=== PATIENT | male | born 1965 | race Caucasian/White ===

== ENCOUNTER 2017-11-16 10:39 | Emergency (ER) | payer BC ==
[~2017-11-16] VITALS: Ht 188 cm; Wt 115.9 kg
[2017-11-16 10:43] VITALS: Ht 188 cm; Wt 115.9 kg
[2017-11-16] MEDS ORDERED: ULTRAM50 MG PO ×2 (10:45→11:21)
[2017-11-16] MEDS ORDERED: NAPROSYN500 MG PO (10:45)
[2017-11-16] MEDS ORDERED: CYCLOBENZAPRINE10 MG PO ×2 (10:45→11:21)
[2017-11-16] MEDS ORDERED: XANAX2 MG PO (10:45)
[2017-11-16] MEDS ORDERED: MEDROL DOSE PACK4 MG PO (11:21)
[2017-11-16 12:23] VITALS: BP 142/83
== END 2017-11-16 12:23 | disposition home or self-care (01) ==
LOC: D.ER 10:39
DX: S16.1XXA Strain of muscle, fascia and tendon at neck level, initial encounter (principal); X58.XXXA Exposure to other specified factors, initial encounter; Y93.89 Activity, other specified; Y92.013 Bedroom of single-family (private) house as the place of occurrence of the external cause; M54.32 Sciatica, left side; F17.200 Nicotine dependence, unspecified, uncomplicated